=== PATIENT | female | born 1965 | race Caucasian/White ===

== ENCOUNTER → 2016-07-24 | Outpatient (CLI) | payer MEDICARE, OTHER ==
[~2016-07-24] MED LIST: AMIL5 PO; IMIT100T PO; LEVO.05 PO; MAXZ PO; MIRT30TA PO; OXYC5 PO; PARO1CAP PO; PLAV75TA PO; POTA-243 PO; PROC10TA4 PO; TEMA15CA PO
[2016-07-24 09:30] LABS: AUTOMATED NEUTROPHIL # 6.4 TH/MM3 (1.8-7.7); BASOPHIL % 0.4 % (0.0-2.0); EOSINOPHIL # 0.2 TH/MM3 (0-0.4); EOSINOPHIL % 2.3 % (0.0-4.0); HEMATOCRIT 43.9 % (35.0-46.0); HEMO FLAGS DIFF FINAL; LYMPH % 19.2 % (9.0-44.0); LYMPHOCYTE # 1.7 TH/MM3 (1.0-4.8); MEAN CELL VOLUME 81.2 FL (80.0-100.0); MEAN CORPUSCULAR HEMOGLOBIN 28.3 PG (27.0-34.0); MEAN CORPUSCULAR HGB CONC 34.8 % (32.0-36.0); MONO % 5.6 % (0.0-8.0); NEUT % 72.5 % (16.0-70.0); PLATELET COUNT 205 TH/MM3 (150-450); RED CELL DISTRIBUTION WIDTH 13.8 % (11.6-17.2); WHITE BLOOD COUNT 8.8 TH/MM3 (4.0-11.0)
[2016-07-24 09:31] LABS: BACTERIA, URINE MANY /hpf; BLOOD, URINE NEG (NEG); GLUCOSE,URINE NEG (NEG); HYALINE CAST, URINE 8 /lpf (RARE); KETONE, URINE NEG (NEG); MUCUS URINE FEW /lpf (OCC); NITRITE,URINE NEG (NEG); SQUAMOUS EPITHELIAL CELL URINE 6 /hpf (0-5); TRANSITIONAL EPI CELLS, URINE <1 /hpf; URINE COLOR LIGHT-YELLOW (YELLW/STRAW)
[2016-07-24 09:46] LABS: MAGNESIUM 2.4 MG/DL (1.5-2.5); POTASSIUM 4.2 MEQ/L (3.5-5.1)
[2016-07-24 10:31] LABS: MICRO ALBUMIN RANDOM URINE RAW 5.5 MG/L (0.0-30.0)
== END ==
LOC: PLAB 07:26
PROVIDERS: ATTEND Internal Medicine Nephrology
DX: E26.81 Bartter's syndrome (principal); N18.3 Chronic kidney disease, stage 3 (moderate)
CPT/HCPCS: 36415; 80048; 81001; 82043; 83735; 83970; 84100; 85025

== ENCOUNTER → 2016-08-19 | Outpatient (CLI) | payer MEDICARE, OTHER ==
[2016-08-19 13:46] LABS: BICARBONATE 28.4 MEQ/L (21.0-32.0)
[2016-08-19 15:38] LABS: POTASSIUM 2.9 MEQ/L (3.5-5.1)
== END ==
LOC: PLAB 10:13
DX: I15.9 Secondary hypertension, unspecified (principal)
CPT/HCPCS: 36415; 80048

== ENCOUNTER → 2016-08-29 | Outpatient (CLI) | payer MEDICARE, OTHER ==
[2016-08-29 13:51] LABS: BICARBONATE 27.5 MEQ/L (21.0-32.0); POTASSIUM 3.1 MEQ/L (3.5-5.1)
== END ==
LOC: PLAB 11:26
DX: I15.9 Secondary hypertension, unspecified (principal)
CPT/HCPCS: 36415; 80048

== ENCOUNTER → 2016-09-11 | Outpatient (CLI) | payer MEDICARE, OTHER ==
[2016-09-11 13:53] LABS: BICARBONATE 26.6 MEQ/L (21.0-32.0); POTASSIUM 3.6 MEQ/L (3.5-5.1)
== END ==
LOC: PLAB 11:01
DX: I15.9 Secondary hypertension, unspecified (principal)
CPT/HCPCS: 36415; 80048

== ENCOUNTER → 2016-10-29 | Outpatient (CLI) | payer MEDICARE, OTHER ==
[2016-10-29 14:00] LABS: BICARBONATE 22.7 MEQ/L (21.0-32.0); POTASSIUM 3.2 MEQ/L (3.5-5.1)
== END ==
LOC: PLAB 08:59
DX: I15.9 Secondary hypertension, unspecified (principal); E87.6 Hypokalemia
CPT/HCPCS: 36415; 80048; 82088; 83735; 84244

== ENCOUNTER → 2016-12-05 | Outpatient (CLI) | payer MEDICARE, OTHER ==
[2016-12-05 13:46] LABS: BICARBONATE 27.8 MEQ/L (21.0-32.0); POTASSIUM 3.5 MEQ/L (3.5-5.1)
== END ==
LOC: PLAB 11:03
DX: I15.9 Secondary hypertension, unspecified (principal)
CPT/HCPCS: 36415; 80048

== ENCOUNTER → 2017-03-19 | Outpatient (CLI) | payer MEDICARE, OTHER ==
[2017-03-19 11:25] LABS: BICARBONATE 27.8 MEQ/L (21.0-32.0)
== END ==
LOC: PLAB 10:21
DX: I15.9 Secondary hypertension, unspecified (principal)
CPT/HCPCS: 36415; 80048

== ENCOUNTER → 2017-05-16 | Outpatient (CLI) | payer MEDICARE, OTHER ==
[2017-05-16 14:06] LABS: BICARBONATE 25.3 MEQ/L (21.0-32.0); CALCIUM 8.9 MG/DL (8.5-10.1); CREATININE 1.16 MG/DL (0.50-1.00)
== END ==
LOC: PLAB 10:24
DX: I15.9 Secondary hypertension, unspecified (principal)
CPT/HCPCS: 36415; 80048